=== PATIENT | female | born 1960 | race Caucasian/White ===

== ENCOUNTER 2023-09-15 00:14 | Emergency (ER) | payer MEDICARE ==
[~2023-09-15] VITALS: Ht 167.6 cm; Wt 49.1 kg
[2023-09-15 00:54] VITALS: BP 228/123; PULSE 100; RESP 18; TEMP 99.3
== END 2023-09-15 04:26 | disposition left against medical advice (07) ==
LOC: EMS 00:18
DX: T78.40XA Allergy, unspecified, initial encounter (principal); F41.9 Anxiety disorder, unspecified; F17.210 Nicotine dependence, cigarettes, uncomplicated; Z98.890 Other specified postprocedural states; Z96.659 Presence of unspecified artificial knee joint; Z88.8 Allergy status to other drugs, medicaments and biological substances; Z88.2 Allergy status to sulfonamides; X58.XXXA Exposure to other specified factors, initial encounter
CPT/HCPCS: 99283; Z7502